=== PATIENT | male | born 1980 | race Caucasian/White ===

== ENCOUNTER → 2023-11-17 | Outpatient (CLI) | payer BC ==
--- NOTE | 2023-11-17 21:02 | MR ---
EXAMINATION TYPE: MR shoulder RT wo con DATE OF EXAM: 11/17/2023 COMPARISON: None HISTORY: Right shoulder pain TECHNIQUE: Multiplanar, multisequence imaging of the shoulder is performed without contrast. FINDINGS: There is no bone contusion or fracture. There is mild to moderate osteoarthritic change of the AC joint and there is a down sloping acromion process with a subacromial spur resulting in moderate shoulder impingement. There is mild subdeltoid bursitis. There is a tiny intrasubstance tear of the infraspinatus.. There i s a small rim rent tear of the anterior aspect of the supraspinatus. There is no subscapularis tear a nd there is no retraction of the musculotendinous junctions of the rotator cuff. The biceps tendon is normal in signal and intensity in position within the bicipital groove. The marco ps anchor is intact. There is a small SLAP injury involving the superior cartilaginous labrum There is no joint effusion. IMPRESSION: Moderate shoulder impingement secondary to degenerative changes AC joint and configuration is acromia l process and subacromial spur. 2. Tiny intrasubstance tear of the infraspinatus. 3. Small rim rent tear of the anterior aspect of the supraspinatus. 4. SLAP injury.
== END | disposition home or self-care (01) ==
LOC: RADMRIMAIN 20:15
PROVIDERS: ATTEND Orthopaedic Surgery
DX: M19.011 Primary osteoarthritis, right shoulder (principal); M25.811 Other specified joint disorders, right shoulder; M75.111 Incomplete rotator cuff tear or rupture of right shoulder, not specified as traumatic; M24.811 Other specific joint derangements of right shoulder, not elsewhere classified

== ENCOUNTER 2024-01-14 07:53 | Day surgery (SDC) | payer BC ==
--- NOTE | 2024-01-13 22:12 | HP ---
HISTORY AND PHYSICAL DATE OF SURGERY: 01/14/2024. HISTORY OF PRESENT ILLNESS: Suhail Bustamnate is a 43-year-old gentleman seen with progressive right shoulder pain. We discussed options regarding treatment and he elected to proceed with right shoulder arthroscopy. Consent was obtained. PAST MEDICAL HISTORY: Noncontributory. PAST SURGICAL HISTORY: Noncontributory. DAILY MEDICATIONS: None. ALLERGIES: None reported. SOCIAL HISTORY: Denies tobacco use. PHYSICAL EVALUATION OF THE RIGHT SHOULDER: Flexion is 150 degrees, abduction is 140 degrees. External rotation is 40 degrees with weakness. Tenderness along the anterolateral acromion and rotator cuff insertion. Impingement is positive at 90 degrees. Cross-body adduction sign is positive. Drop- arm sign is positive. Distal neurovascular exam is intact IMAGING STUDIES: Right shoulder radiographs revealed a type 3 acromion along with severe acromioclavicular joint osteoarthritis. MRI of right shoulder revealed impingement, rotator cuff tear as well as a labral tear. IMPRESSION: 1. Right shoulder impingement with rotator cuff tear. 2. Right shoulder labral tear. 3. Right shoulder acromioclavicular joint osteoarthritis. 4. Right shoulder bicipital tendinitis. PLAN: Right shoulder arthroscopy with subacromial decompression, arthroscopic rotator cuff repair, Cinthia procedure, possible biceps tenodesis and debridement with labral tear. MMODL / IJN: [id number] /
[~2024-01-14 07:53] MED LIST: HYDROmorphone 0.5 MG/0.5 ML SYRINGE IVP PRN
[2024-01-14] MEDS: LACTATED RINGERS 1,000 ML IV SCH (08:12)
[2024-01-14] MEDS: DEXAMETHASONE SOD PHOSPHATE 4 MG/ML 1 ML VIAL IV ONE (08:45)
[2024-01-14] MEDS: ONDANSETRON 4 MG/2 ML VIAL IVP ONE (08:45)
[2024-01-14 08:46] LABS: Basophils # (A) 0.1 k/uL (0-0.2); Basophils % (A) 1 %; Eosinophils # (A) 0.1 k/uL (0-0.7); Eosinophils % (A) 2 %; HCT 44.3 % (39.0-53.0); HGB 14.6 gm/dL (13.0-17.5); Lymphocytes % (A) 36 %; MCH 29.4 pg (25.0-35.0); MCHC 32.9 g/dL (31.0-37.0); MCV 89.5 fL (80.0-100.0); Mean Platelet Volume 7.5; Monocytes # (A) 0.5 k/uL (0-1.0); Monocytes % (A) 8 %; Neutrophils # (A) 2.8 k/uL (1.3-7.7); Neutrophils % (A) 50 %; Platelet Count 252 k/uL (150-450); RBC 4.94 m/uL (4.30-5.90); RDW 12.5 % (11.5-15.5); WBC 5.6 k/uL (3.8-10.6)
[2024-01-14] MEDS: MIDAZOLAM 2 MG/2 ML VIAL IVP ONE (08:51)
[2024-01-14 09:00] LABS: ALT 104 U/L (4-49); AST 46 U/L (17-59); African American GFR (CKD) >90 (>60 ml/min/1.73 sqM); Albumin 4.7 g/dL (3.5-5.0); Alkaline Phosphatase 72 U/L (38-126); Anion Gap 10 mmol/L; Blood Urea Nitrogen 21 mg/dL (9-20); Calcium 9.6 mg/dL (8.4-10.2); Carbon Dioxide 27 mmol/L (22-30); Chloride 105 mmol/L (98-107); Glucose 98 mg/dL (74-99); Non-African American GFR(CKD) >90 (>60 ml/min/1.73 sqM); Sodium 142 mmol/L (137-145); Total Protein 7.8 g/dL (6.3-8.2)
[2024-01-14] MEDS ORDERED: fentaNYL (PF) 50 MCG/ML 2 ML AMP ONE (09:27)
[2024-01-14] MEDS ORDERED: NEOSTIGMINE 1 MG/ML 10 ML VIAL ONE (09:27)
[2024-01-14] MEDS ORDERED: MIDAZOLAM 2 MG/2 ML VIAL ONE (09:27)
[2024-01-14] MEDS ORDERED: ROCURONIUM 10 MG/ML (5 ML VIAL) IV ONE (09:27)
[2024-01-14] MEDS ORDERED: DEXAMETHASONE SOD PHOSPHATE 4 MG/ML 1 ML VIAL ONE (09:27)
[2024-01-14] MEDS ORDERED: PROPOFOL 10 MG/ML 20 ML VIAL IV ONE (09:27)
[2024-01-14] MEDS ORDERED: LIDOCAINE 1% INJ 10MG/ML (20 ML MDV) ONE (09:27)
[2024-01-14] MEDS ORDERED: ROPIVACAINE 5 MG/ML 30 ML VIAL ONE (09:27)
[2024-01-14] MEDS ORDERED: GLYCOPYRROLATE 0.2 MG/ML 2 ML VIAL ONE (09:27)
[2024-01-14] MEDS ORDERED: PHENYLEPHRINE 10 MG/ML VIAL ONE (09:27)
[2024-01-14] MEDS ORDERED: HYDROmorphone (PF) 1 MG/ML ONE (09:27)
[2024-01-14] MEDS ORDERED: ACETAMINOPHEN IV (For NPO) 1,000 MG/100 ML VIAL ONE (09:27)
[2024-01-14] MEDS ORDERED: SUCCINYLCHOLINE CHLORIDE 200 MG/10 ML VIAL IV ONE (09:27)
--- NOTE | 2024-01-14 11:10 | P.OP ---
Date of Procedure: 01/14/24 Preoperative Diagnosis: Right shoulder impingement Postoperative Diagnosis: 1. Right shoulder rotator cuff tear 2. Right shoulder impingement 3. Right shoulder acromioclavicular joint osteoarthritis 4. Right shoulder superficial superior labral tear Procedure(s) Performed: 1. Right shoulder arthroscopic rotator cuff repair 2. Right shoulder arthroscopic subacromial decompression 3. Right shoulder arthroscopic Cinthia procedure 4. Right shoulder arthroscopic debridement superficial labral tear Implants: 1Arthrex 4.75 swivel lock anchor Anesthesia: GETA, regional (Interscalene block) Surgeon: Prasanth Richards Hot Kettle Tender #1: Bryon Lawrence Estimated Blood Loss (ml): 10 Pathology: none sent Condition: stable Disposition: PACU Indications for Procedure: 43-year-old patient who was seen with progressive right shoulder pain. After having treatment options discussed, he elected to proceed with arthroscopy. Operative Findings: See description of procedure Description of Procedure: Patient underwent an interscalene block by department of anesthesia. The patient was then taken to the operative suite. The patient underwent a general anesthetic by the department of anesthesia. The patient was placed into a lateral position and secured. There was appropriate padding of the bony prominence. Right shoulder was then prepped and draped in normal sterile o rthopedic fashion. We placed the extremity in 10 pounds of longitudinal traction. A posterior incision was now made for a posterior working portal site. The trocar and cannula were inserted into the glenohumeral joint. Arthroscopy was initiated. Spinal needle was now inserted anteriorly, to ascertain the anterior working portal site. An incision was now made in that area, a trocar was inserted followed by a probe. There was some superficial tearing of the superior labrum. There was some hyperemia of the biceps tendon but not enough to warrant a tenodesis. There was no significant chondromalacia present. The remainder labrum appeared stable. I used a motorized shaver and debrided out the superficial tearing of the superior labrum. I now probed the area and found to be stable. Instruments were now removed from the glenohumeral joint. Utilizing the posterior working portal site, the trocar and cannula were inserted into the subacromial space. Arthroscopy initiated. I made an incision 2 fingerbreadths lateral to the acromion. I introduced my trocar followed by my ArthroCare ablator. I now began ablating thick subacromial bursal tissue, which exposed the undersurface of the anterior acromion. There was diminished subacromial space. There was a very prominent anterior acromion. A motorized bur was introduced and a subacromial decompression was performed. I also excised some osteophytes off the inferior aspect of the distal clavicle. The AC joint was visualized and noted to be fairly arthritic. The motorized bur was introduced in the anterior portal site and a Cinthia procedure was performed without difficulty removing 8 mm off the distal clavicle, decompressing the AC joint nicely. I turned my attention to the rotator cuff. There was a 1 cm tear along the posterior aspect of the distal supraspinatus. I introduced a motorized shaver and debrided the margins getting down to stable tendon tissue. The defect/tear measured almost 1.5 cm and was freely mobile over the footprint. I abraded the footprint with a motorized bur. With the assistance of Oren CRANE I now passed everted mattress sutures through good bites of rotator cuff tendon. I now punched a hole in the footprint area for insertion of an anchor. All 6 limbs of suture were passed through the eyelet of an Arthrex 4.75 swivel lock anchor. I placed the eyelet into the prepunched a hole. I held in position while Oren CRANE tensioned all 6 limbs of suture and deployed the anchor with good fixation noted. All residual suture limbs were now clipped. We had good compression of the tendon along the entire footprint. Instruments now removed from the portal sites. All portal sites were approximated with nylon suture. Sterile dressings were applied followed by a shoulder sling. Bryon CRANE assisted in this complex case. The patient was awakened, transferred to a bed, and taken to recovery in stable condition.
[2024-01-14 11:39] VITALS: TEMP 96.8
[2024-01-14 12:23] VITALS: RESP 16
--- NOTE | 2024-01-14 12:23 | P.ANPRN ---
Procedure Note - Anesthesia - Nerve Block Performed Right Interscalene Single Time Out Performed: Yes Date of Procedure: 01/14/24 Procedure Start Time: 08:01 Procedure Stop Time: 09:00 Location of Patient: PreOp Indication: Acute Post-Operative Pain, Requested by Surgeon Sedation Type: Sedate with meaningful contact maintained Preparation: Sterile Prep Position: Supine Needle Types: Pajunk Needle Gauge: 21 Ultrasound used to visualize needle placement: Yes Ultrasound used to observe medication spread: Yes Blood Aspirated: No Pain Paresthesia on Injection Noted: No Resistance on Injection: Normal Image Stored and Saved: Yes Events: Uneventful and Well Tolerated (ropi .5% 20 cc plus dexamethasone 4 mg)
[2024-01-14 13:52] VITALS: BP 130/84; PULSE 70
== END 2024-01-14 13:00 | disposition home or self-care (01) ==
LOC: OR 07:53
PROVIDERS: ATTEND Orthopaedic Surgery
DX: S43.491A Other sprain of right shoulder joint, initial encounter (principal); M75.101 Unspecified rotator cuff tear or rupture of right shoulder, not specified as traumatic; M75.41 Impingement syndrome of right shoulder; M75.21 Bicipital tendinitis, right shoulder; M19.011 Primary osteoarthritis, right shoulder; G89.18 Other acute postprocedural pain; Z85.038 Personal history of other malignant neoplasm of large intestine; Z79.899 Other long term (current) drug therapy; X58.XXXA Exposure to other specified factors, initial encounter
CPT/HCPCS: 64415; 80053; 85025; 29807; 29824; 29826; 29827; C1713; J2250; J0330; J1100; J2710; J0690; J2405; J2001; J3010; J1170; J2795; J0131; J2704; J2371